=== PATIENT | male | born 1990 | race Caucasian/White ===

== ENCOUNTER 2019-03-01 14:55 | Emergency (ER) | payer MEDICAID ==
[~2019-03-01] VITALS: Ht 180.3 cm; Wt 86.2 kg
--- NOTE | 2019-03-01 15:30 | NUR ---
ED Nurse Note: Pt walked in to ED due to SI thoughts, plan on overdosing with amphetamines. Pt aox4, no distress at this time, VSS. Placed in hospital gown. Belongings placed in locker # 2. Will continue to monitor.
[2019-03-01 15:50] VITALS: BP 107/74
--- NOTE | 2019-03-01 16:23 | NUR ---
ED Nurse Note: blood collected and sent down to lab
[2019-03-01 16:31] LABS: BASOPHILS % (AUTO) 1.3 % (0.0-2.0); HEMATOCRIT 41.8 % (42.0-52.0); LYMPHOCYTES % (AUTO) 33.4 % (20.0-45.0); MEAN CORPUSCULAR VOLUME 91 FL (80-99); MONOCYTES % (AUTO) 7.7 % (1.0-10.0); NEUTROPHILS % (AUTO) 50.7 % (45.0-75.0); PLATELET COUNT 214 K/UL (150-450); RED CELL DISTRIBUTION WIDTH 9.9 % (11.6-14.8); WHITE BLOOD COUNT 6.1 K/UL (4.8-10.8)
[2019-03-01 16:48] LABS: ANION GAP 8 mmol/L (5-15); BLOOD UREA NITROGEN 15 mg/dL (7-18); CALCIUM 8.9 MG/DL (8.5-10.1); CARBON DIOXIDE 31 MMOL/L (21-32); CHLORIDE 105 MMOL/L (98-107); CREATININE 1.1 MG/DL (0.55-1.30); POTASSIUM 3.9 MMOL/L (3.5-5.1); SODIUM 144 MMOL/L (136-145)
[2019-03-01 16:52] LABS: ALANINE AMINOTRANSFERASE 43 U/L (12-78); ALBUMIN 3.5 G/DL (3.4-5.0); ALBUMIN/GLOBULIN RATIO 1.2 (1.0-2.7); ALKALINE PHOSPHATASE 51 U/L (46-116); ASPARTATE AMINO TRANSFERASE 48 U/L (15-37); BILIRUBIN,TOTAL 0.5 MG/DL (0.2-1.0)
--- NOTE | 2019-03-01 17:40 | NUR ---
ED Nurse Note: Transferred to treatment room bed 2. Sitter at bedside.
[2019-03-01 18:37] VITALS: BP 106/51
--- NOTE | 2019-03-01 19:17 | NUR ---
HAND-OFF: Report given to SHAHRAM Tsang. Endorsed plan of care. Patient remains in stable condition. Sitter present at bedside.
--- NOTE | 2019-03-01 19:38 | NUR ---
ED Nurse Note: Patient request food and drink. Patient provided with orange juices, a sandwich and chips. Patient reminded of need for urine specimen. Will continue to monitor.
--- NOTE | 2019-03-01 20:38 | NUR ---
ED Nurse Note: Patient is sleeping, with no s/s of acute distress. will continue to monitor. Sitter at bedside.
--- NOTE | 2019-03-01 21:11 | Emergency Room Report ---
History of Present Illness General Chief Complaint: Suicidal Source: Patient (Magalis Nath) Present Illness HPI 28 YO male presents to the ED c/o having S/I. Pt. reports he plans on leaving here and OD'ing on Heroin if he gets d/c'd. Pt. endorses hx of substance abuse and describes DOC as meth, for which he snorts 1g per day. Last use was yesterday. Pt. denies habitual heroin use. PT. reports that he will get some heroin "from his hieu." He reports 2 PSA's in the past once after HS, and the last he cant recall. He denies previous attendance of substance abuse detox centers. This patient denies having homicidal ideations and/or access to firearms. Denies being on medications. Denies hx of alcohol abuse or dependency. Pt. denies pain at this time. Patient denies manic symptoms,mood changes, insomnia,impulsivity, visual/ auditory hallucinations, or loss of consciousness or bodily control. Denies cardiac, liver or renal disorder. Denies seizure hx. or hx of TBI. Denies BLACKWOOD, dizziness, LOC,CP, SOB, palpitations, abdominal pain, nausea vomiting and other associated symptoms. He denies being currently under the care of a psychiatric provider. (Magalis Nath) Allergies: Coded Allergies: PENICILLINS (Verified Allergy, Unknown, 03/01/19) Patient History Past Medical History: see triage record Past Surgical History: none Pertinent Family History: none Reviewed Nursing Documentation: PMH: Agreed; PSxH: Agreed (Magalis Nath) Nursing Documentation-PMH Past Medical History: No History, Except For (Magalis Nath) Review of Systems All Other Systems: negative except mentioned in HPI (Magalis Nath) Physical Exam Vital Signs Date Time Temp Pulse Resp B/P (MAP) Pulse Ox O2 Delivery O2 Flow Rate FiO2 03/01/19 15:10 98.1 70 18 107/74 (85) 97 Room Air Sp02 EP Interpretation: reviewed, normal General Appearance: no apparent distress, alert, GCS 15, non-toxic Head: normocephalic, atraumatic Eyes: bilateral eye normal inspection, bilateral eye PERRL ENT: hearing grossly normal, normal voice Neck: full range of motion Respiratory: lungs clear, normal breath sounds, speaking full sentences Cardiovascular #1: regular rate, rhythm Gastrointestinal: normal bowel sounds, non tender, soft Musculoskeletal: back normal, gait/station normal, normal range of motion, non- tender Neurologic: alert, oriented x3, responsive, motor strength/tone normal, sensory intact, speech normal, grossly normal Psychiatric: judgement/insight normal, depressed affect, other - reports drug abuse Skin: no rash, other - no evidence of ST skin infections Lymphatic: no adenopathy (Magalis Nath) Medical Decision Making PA Attestation Dr. Bauer Is my supervising Physician whom patient management has been discussed with. (Magalis Nath) Diagnostic Impression: Primary Impression: Behavior problem Additional Impressions: Suicidal ideation Methamphetamine abuse ER Course 28 YO male presents to the ED c/o having S/I. Pt. reports he plans on leaving here and OD'ing on Heroin if he gets d/c'd. Pt. endorses hx of substance abuse and describes DOC as meth, for which he snorts 1g per day. Last use was yesterday. Pt. denies habitual heroin use. PT. reports that he will get some heroin "from his hieu." He reports 2 PSA's in the past once after HS, and the last he cant recall. He denies previous attendance of substance abuse detox centers. This patient denies having homicidal ideations and/or access to firearms. Denies being on medications. Denies hx of alcohol abuse or dependency. Pt. denies pain at this time. Patient denies manic symptoms,mood changes, insomnia,impulsivity, visual/ auditory hallucinations, or loss of consciousness or bodily control. Denies cardiac, liver or renal disorder. Denies seizure hx. or hx of TBI. Denies BLACKWOOD, dizziness, LOC,CP, SOB, palpitations, abdominal pain, nausea vomiting and other associated symptoms. He denies being currently under the care of a psychiatric provider. Pt is hyperactive, and has a very anxious and restless affect. Ddx considered but are not limited to OD, SI/HI, psychosis, UTI, intoxication, Depression just to name a few. Vital signs: are WNL, pt. is afebrile H&PE are most consistent with behavioral/mental health issue ORDERS: -CBC, CMP: WNL -UA: WNL -UDS: POSITIVE for AMPHETAMINES -Salicylates and Acetaminophen - no acute intoxication. -Serum ETOH: WNL ED INTERVENTIONS: - None required at this time. DISPOSITION: Pt. signed out to oncoming ED physician Dr. Abreu. Labs Test 03/01/19 16:20 03/01/19 22:11 White Blood Count 6.1 K/UL (4.8-10.8) Red Blood Count 4.60 M/UL (4.70-6.10) Hemoglobin 14.0 G/DL (14.2-18.0) Hematocrit 41.8 % (42.0-52.0) Mean Corpuscular Volume 91 FL (80-99) Mean Corpuscular Hemoglobin 30.4 PG (27.0-31.0) Mean Corpuscular Hemoglobin Concent 33.5 G/DL (32.0-36.0) Red Cell Distribution Width 9.9 % (11.6-14.8) Platelet Count 214 K/UL (150-450) Mean Platelet Volume 6.0 FL (6.5-10.1) Neutrophils (%) (Auto) 50.7 % (45.0-75.0) Lymphocytes (%) (Auto) 33.4 % (20.0-45.0) Monocytes (%) (Auto) 7.7 % (1.0-10.0) Eosinophils (%) (Auto) 7.0 % (0.0-3.0) Basophils (%) (Auto) 1.3 % (0.0-2.0) Sodium Level 144 MMOL/L (136-145) Potassium Level 3.9 MMOL/L (3.5-5.1) Chloride Level 105 MMOL/L (98-107) Carbon Dioxide Level 31 MMOL/L (21-32) Anion Gap 8 mmol/L (5-15) Blood Urea Nitrogen 15 mg/dL (7-18) Creatinine 1.1 MG/DL (0.55-1.30) Estimat Glomerular Filtration Rate > 60 mL/min (>60) Glucose Level 115 MG/DL (74-106) Calcium Level 8.9 MG/DL (8.5-10.1) Total Bilirubin 0.5 MG/DL (0.2-1.0) Aspartate Amino Transf (AST/SGOT) 48 U/L (15-37) Alanine Aminotransferase (ALT/SGPT) 43 U/L (12-78) Alkaline Phosphatase 51 U/L (46-116) Total Protein 6.5 G/DL (6.4-8.2) Albumin 3.5 G/DL (3.4-5.0) Globulin 3.0 g/dL Albumin/Globulin Ratio 1.2 (1.0-2.7) Salicylates Level 1.9 ug/mL (2.8-20) Acetaminophen Level < 2 MCG/ML (10-30) Serum Alcohol < 3 mg/dL Urine Opiates Screen Negative (NEGATIVE) Urine Barbiturates Screen Negative (NEGATIVE) Phencyclidine (PCP) Screen Negative (NEGATIVE) Urine Amphetamines Screen Positive (NEGATIVE) Urine Benzodiazepines Screen Negative (NEGATIVE) Urine Cocaine Screen Negative (NEGATIVE) Urine Marijuana (THC) Screen Negative (NEGATIVE) Labs Test 03/01/19 16:20 White Blood Count 6.1 K/UL (4.8-10.8) Red Blood Count 4.60 M/UL (4.70-6.10) Hemoglobin 14.0 G/DL (14.2-18.0) Hematocrit 41.8 % (42.0-52.0) Mean Corpuscular Volume 91 FL (80-99) Mean Corpuscular Hemoglobin 30.4 PG (27.0-31.0) Mean Corpuscular Hemoglobin Concent 33.5 G/DL (32.0-36.0) Red Cell Distribution Width 9.9 % (11.6-14.8) Platelet Count 214 K/UL (150-450) Mean Platelet Volume 6.0 FL (6.5-10.1) Neutrophils (%) (Auto) 50.7 % (45.0-75.0) Lymphocytes (%) (Auto) 33.4 % (20.0-45.0) Monocytes (%) (Auto) 7.7 % (1.0-10.0) Eosinophils (%) (Auto) 7.0 % (0.0-3.0) Basophils (%) (Auto) 1.3 % (0.0-2.0) Sodium Level 144 MMOL/L (136-145) Potassium Level 3.9 MMOL/L (3.5-5.1) Chloride Level 105 MMOL/L (98-107) Carbon Dioxide Level 31 MMOL/L (21-32) Anion Gap 8 mmol/L (5-15) Blood Urea Nitrogen 15 mg/dL (7-18) Creatinine 1.1 MG/DL (0.55-1.30) Estimat Glomerular Filtration Rate > 60 mL/min (>60) Glucose Level 115 MG/DL (74-106) Calcium Level 8.9 MG/DL (8.5-10.1) Total Bilirubin 0.5 MG/DL (0.2-1.0) Aspartate Amino Transf (AST/SGOT) 48 U/L (15-37) Alanine Aminotransferase (ALT/SGPT) 43 U/L (12-78) Alkaline Phosphatase 51 U/L (46-116) Total Protein 6.5 G/DL (6.4-8.2) Albumin 3.5 G/DL (3.4-5.0) Globulin 3.0 g/dL Albumin/Globulin Ratio 1.2 (1.0-2.7) Salicylates Level 1.9 ug/mL (2.8-20) Acetaminophen Level < 2 MCG/ML (10-30) Serum Alcohol < 3 mg/dL (Magalis Nath) ER Course Patient signed out to me. He slept through the night. He still complained of being suicidal. He is medically cleared for psychiatric evaluation and transfer. And is willing to go voluntarily (Luisito Abreu MD) Last Vital Signs Date Time Temp Pulse Resp B/P (MAP) Pulse Ox O2 Delivery O2 Flow Rate FiO2 03/01/19 18:37 97.7 73 18 106/51 94 Room Air (Magalis Nath) Status: improved (Luisito Abreu MD) Disposition: XFER TO PSYCH HOSP/UNIT Condition: Stable Signed Out To: Dr. Abreu (Magalis Nath) Scripts No Active Prescriptions or Reported Meds Referrals: NOT CHOSEN IPA/,REFERRING (PCP) Magalis Nath Mar 01, 2019 21:11 Luisito Abreu MD Mar 02, 2019 06:13
--- NOTE | 2019-03-01 21:40 | NUR ---
ED Nurse Note: Patient attempting to provide urine sample after reminder.
--- NOTE | 2019-03-01 22:45 | NUR ---
ED Nurse Note: Patient is sleeping again, sitter at bedside. Will continue to monitor.
--- NOTE | 2019-03-01 23:52 | NUR ---
ED Nurse Note: Patient sleeping with no s/s of acute distress. Will continue to monitor.
--- NOTE | 2019-03-02 01:05 | NUR ---
ED Nurse Note: Patient is awake, ambulatory and voiding frequently. Will continue to monitor. Sitter at bedside.
--- NOTE | 2019-03-02 02:06 | NUR ---
ED Nurse Note: Patient is resting comfortably, sitter at bedside.
--- NOTE | 2019-03-02 03:39 | NUR ---
ED Nurse Note: Patient still sleeping soundly, sitter at bedside. Will continue to monitor.
--- NOTE | 2019-03-02 04:38 | NUR ---
ED Nurse Note: Patient sleeping. sitter at bedside. I will continue to monitor.
--- NOTE | 2019-03-02 05:25 | NUR ---
ED Nurse Note: Homeless log completed.
--- NOTE | 2019-03-02 07:00 | NUR ---
ED Nurse Note: Patient refuses all personal hygiene attempts. Will continue to monitor.
[2019-03-02 07:35] VITALS: BP 115/60
--- NOTE | 2019-03-02 08:06 | NUR ---
ED Nurse Note: BREAKFAST PROVIDED TO PTJenny VILLANUEVA AT THE BED SIDE.
[2019-03-02 10:28] VITALS: BP 122/76
--- NOTE | 2019-03-02 10:28 | NUR ---
ED Nurse Note: SANDWICH AND JUICE PROVIDED. SITTER KAY AT THE BED SIDE.
[2019-03-02 10:36] VITALS: BP 122/76
--- NOTE | 2019-03-02 10:36 | NUR ---
ED Nurse Note: PT TRANSPORTED TO [facility] WITH [facility]. ALL BELONGINGS SENT WITH PT. STABLE FOR TRANSFER.
== END 2019-03-02 10:36 ==
LOC: EMR 15:45
DX: R45.851 Suicidal ideations (principal); F15.10 Other stimulant abuse, uncomplicated; F91.9 Conduct disorder, unspecified; Z88.0 Allergy status to penicillin
CPT/HCPCS: 36415; 80053; 80307; 85025; G0480; G0481; Z7502; 99285